=== PATIENT | male | born 1975 ===

== ENCOUNTER 2018-10-05 16:13 | Observation (INO) ==
[2018-10-05] MEDS ORDERED: MORPHINE 4 MG/1 ML VIAL IV PRN (18:02)
[2018-10-05] MEDS ORDERED: ALUM/MAG/SIMETH/LIDO VISC 1:1 30 ML BOTTLE PO PRN (18:02)
[2018-10-05] MEDS ORDERED: DEXTROSE 10% 250 ML BAG IV PRN (18:02)
[2018-10-05] MEDS ORDERED: GLUCAGON 1 MG VIAL IM PRN (18:02)
[2018-10-05] MEDS ORDERED: ONDANSETRON 4 MG/2 ML VIAL IV PRN (18:02)
[2018-10-05] MEDS ORDERED: ENOXAPARIN 120 MG/0.8 ML SYRINGE SUBCUT SCH (20:00)
[2018-10-05] MEDS ORDERED: ATORVASTATIN 10 MG TABLET PO SCH (21:00)
[2018-10-05] MEDS: INSULIN LISPRO 100 UNIT/ML SUBCUT SCH (22:07)
[2018-10-05] MEDS: SODIUM CHLORIDE 0.45% 1,000 ML IV SCH (22:07)
[2018-10-06] MEDS: SODIUM CHLORIDE 0.45% 1,000 ML IV SCH (04:53)
[2018-10-06 05:54] LABS: Basophils % 0.5 % (0.0-0.8); Eosinophils # 0.3 10*3/uL (0.0-0.87); Eosinophils % 3.4 % (0.00-10.9); Hematocrit 43.8 VOL% (42.0-52.0); Hemoglobin 13.8 GM/DL (14.0-18.0); Immature Granulocytes % 0.5 %; Immature Granulocytes Absolute 0.04 #; Lymphocytes % 35.5 % (21.2-54.2); Mean Corpuscular HGB Conc 31.5 GM/DL (32-36); Mean Corpuscular Volume 90.7 FL (87-102); Mean Platelet Volume 10.9 FL (9.6-12.0); Monocytes % 9.7 % (1.7-12.7); Neutrophils % 50.4 % (38.7-73.9); Platelet Count 220 T/CUMM (130-400); Red Blood Count 4.83 MC/CUMM (3.8-5.5); White Blood Count 8.4 T/CUMM (4-12)
[2018-10-06 06:37] LABS: Albumin 3.7 G/DL (3.4-5.0); Calcium 9.2 MG/DL (8.5-10.1); Osmolality,Calculated 289.5 MOS/KG (273-304); Risk Ratio 3.97; Thyroid Stimulating Hormone 1.74 uIU/ml (0.358-3.74); Total Protein 7.8 G/DL (6.4-8.3); VLDL CHOLESTEROL 43.2 MG/DL
[2018-10-06] MEDS ORDERED: MAGNESIUM SULF RIDER 2 GM in PREMIX 1 EACH IV PRN (07:30)
[2018-10-06] MEDS ORDERED: ASPIRIN 325 MG TABLET PO ONE (07:30)
[2018-10-06] MEDS ORDERED: diphenhydrAMINE CAP 25 MG CAPSULE PO ONE (07:30)
[2018-10-06] MEDS ORDERED: POTASSIUM CHLORIDE RIDER 10 MEQ in PREMIX 1 EACH IV PRN (07:30)
[2018-10-06] MEDS ORDERED: DIAZEPAM 5 MG TABLET PO ONE (07:30)
[2018-10-06] MEDS ORDERED: LIDOCAINE 1% 20 ML VIAL ONE (08:10)
[2018-10-06] MEDS ORDERED: VERAPAMIL 5 MG/2 ML VIAL ONE (08:29)
[2018-10-06] MEDS ORDERED: NITROGLYCERIN DRIP 50 MG/250 ML BOTTLE IV ONE (08:29)
[2018-10-06] MEDS ORDERED: fentaNYL 100 MCG/2 ML VIAL ONE (08:29)
[2018-10-06] MEDS ORDERED: MIDAZOLAM 2 MG/2 ML VIAL ONE (08:29)
[2018-10-06] MEDS: INSULIN LISPRO 100 UNIT/ML SUBCUT SCH ×6 (08:33→21:27)
[2018-10-06] MEDS ORDERED: ENOXAPARIN 60 MG/0.6 ML SYRINGE ONE (09:05)
[2018-10-06] MEDS ORDERED: TIROFIBAN 5,000 MCG/100 ML PREMIX IV SCH (09:24)
[2018-10-06] MEDS ORDERED: TICAGRELOR 90 MG TABLET ONE (09:29)
[2018-10-06] MEDS: ASPIRIN EC 81 MG TABLET PO SCH (09:34)
[2018-10-06] MEDS: PANTOPRAZOLE 40 MG TABLET PO SCH (09:34)
[2018-10-06] MEDS ORDERED: TIROFIBAN 5,000 MCG/100 ML PREMIX IV ONE (10:41)
[2018-10-06] MEDS: glyBURIDE 5 MG TABLET PO SCH (17:44)
[2018-10-06] MEDS ORDERED: ATORVASTATIN 40 MG TABLET PO SCH (21:00)
[2018-10-06] MEDS ORDERED: INSULIN GLARGINE 100 UNIT/ML SUBCUT SCH (21:00)
[2018-10-06] MEDS: METOPROLOL TARTRATE 25 MG TABLET PO SCH (21:22)
[2018-10-06] MEDS: TICAGRELOR 90 MG TABLET PO SCH (21:24)
[2018-10-07 04:41] LABS: Basophils % 0.5 % (0.0-0.8); Eosinophils # 0.2 10*3/uL (0.0-0.87); Eosinophils % 2.8 % (0.00-10.9); Hematocrit 43.2 VOL% (42.0-52.0); Hemoglobin 13.7 GM/DL (14.0-18.0); Immature Granulocytes % 0.5 %; Immature Granulocytes Absolute 0.04 #; Lymphocytes # 2.1 10*3/uL (1.4-4.0); Lymphocytes % 28.4 % (21.2-54.2); Mean Corpuscular HGB Conc 31.7 GM/DL (32-36); Mean Corpuscular Volume 88.9 FL (87-102); Monocytes % 11.2 % (1.7-12.7); Neutrophils % 56.6 % (38.7-73.9); Platelet Count 225 T/CUMM (130-400); Red Blood Count 4.86 MC/CUMM (3.8-5.5); Red Cell Distribution Width 13.6 % (9.3-17.3); White Blood Count 7.5 T/CUMM (4-12)
[2018-10-07 05:03] LABS: Calcium 8.7 MG/DL (8.5-10.1); Osmolality,Calculated 289.4 MOS/KG (273-304)
[2018-10-07] MEDS: INSULIN LISPRO 100 UNIT/ML SUBCUT SCH ×2 (07:58→08:23)
[2018-10-07 08:14] VITALS: BP 112/55
[2018-10-07] MEDS: glyBURIDE 5 MG TABLET PO SCH (08:23)
[2018-10-07] MEDS: ASPIRIN EC 81 MG TABLET PO SCH (08:23)
[2018-10-07] MEDS: TICAGRELOR 90 MG TABLET PO SCH (08:23)
[2018-10-07] MEDS: PANTOPRAZOLE 40 MG TABLET PO SCH (08:24)
[2018-10-07] MEDS: METOPROLOL TARTRATE 25 MG TABLET PO SCH (08:24)
[2018-10-07] MEDS ORDERED: NITROGLYCERIN SL 0.4 MG TABLET SL PRN (08:43)
== END 2018-10-07 10:42 | disposition home or self-care (01) ==
LOC: N.EDINP 16:13 → N.ED 16:13 → N.TELES 19:34
PROVIDERS: ADMIT Emergency Medicine; ATTEND Emergency Medicine
PROC: CLCCHCL (ICD-10-PCS; 2018-10-06 09:15)